=== PATIENT | female | born 1930 | race Caucasian/White ===

== ENCOUNTER 2016-10-09 12:07 | Emergency (ER) | payer MEDICARE, OTHER ==
[2009-01-29 10:49] VITALS: BP 190/92
[~2016-10-09] VITALS: Ht 162.6 cm; Wt 54.5 kg
[~2016-10-09 12:07] MED LIST: ALDACTONE 25MG25 M1 PO; ALDACTONE 25MG25 MG PO; ASPIRIN 81M81 MG/TA2 PO; FOSAMAX 10M10 MG/TAB PO; LEVOTHYROXIN0.088 MG PO; LEVOXYL0.088 MG PO; LINSEED OIL 1 ML1 ML PO; MAGNESIUM100 MG PO; MULTI VITAMINS1 TAB PO; NORMODYNE100 MG PO; NORMODYNE300 MG PO; SIMVASTATIN10 MG PO; TRANDATE 100MG100 MG PO; VITAMIN B-6100 MG PO; VITAMIN B125000 MCG PO; vitamin b6 PO
[2016-10-09 12:11] VITALS: TEMP 97.4
[2016-10-09 12:53] LABS: BASO % 0.6 % (0.0-2.0); EOS # 0.1 (0.0-0.7); EOS % 2.1 % (0-4.0); GRAN # 3.7 (1.4-6.5); GRAN % 70.4 % (42.2-75.2); HEMATOCRIT 40.9 % (37.0-47.0); HEMOGLOBIN 13.8 g/dl (12.5-16.0); LYMPH # 0.9 (1.2-3.4); LYMPH % 17.2 % (20.0-51.0); MEAN CELL VOLUME 97 fl (80.0-100.0); MEAN CORPUSCULAR HEMOGLOBIN 33 pg (27.0-31.0); MEAN CORPUSCULAR HGB CONC 34 g/dl (33.0-37.0); MEAN PLATELET VOLUME 9.6 fl (7.4-10.4); MONO # 0.5 (0.1-0.6); MONO % 9.3 % (1.7-9.3); PLATELET COUNT 210 K/mm3 (130-400); REDCELL DISTRIBUTION WIDTH-CV 11.3 % (11.5-14.5); WHITE BLOOD COUNT 5.3 K/mm3 (4.8-10.8)
[2016-10-09 13:05] LABS: PH 6 (5-8); SQUAMOUS EPITHELIAL None Seen /hpf; URINE APPEARANCE Clear; URINE BACTERIA None Seen /hpf; URINE BILIRUBIN Negative (NEGATIVE); URINE BLOOD Negative (NEGATIVE); URINE COLOR Straw; URINE GLUCOSE Negative (NEGATIVE); URINE KETONE Negative (NEGATIVE); URINE RBC 0-2 /hpf; URINE UROBILINOGEN Negative (NEGATIVE); URINE WBC None Seen /hpf
[2016-10-09] MEDS ORDERED: CALCIUM 600 PLU1 TAB PO (13:05)
[2016-10-09] MEDS ORDERED: FOSAMAX5 MG PO (13:07)
[2016-10-09 13:11] LABS: ADJUSTED CALCIUM 9.8 mg/dL (8.4-10.2); ALANINE AMINOTRANSFERASE 50 U/L (9-52); ALBUMIN 4.2 gm/dL (3.5-5.0); ALKALINE PHOSPHATASE 55 U/L (50-136); ANION GAP 12 mmol/L (7-16); BILIRUBIN,TOTAL 1.8 mg/dL (0.0-1.0); BLOOD UREA NITROGEN 22 mg/dL (7-17); CARBON DIOXIDE 26 mmol/L (22-30); CHLORIDE 98 mmol/L (98-107); CREATININE, serum 0.58 mg/dL (0.52-1.25); GLUCOSE 124 mg/dL (74-106); POTASSIUM 4.5 mmol/L (3.4-5.0); SODIUM 137 mmol/L (137-145)
[2016-10-09 13:15] LABS: C-REACTIVE PROTEIN < 0.5 mg/dL (0.0-0.9)
[2016-10-09 13:18] LABS: ERYTHROCYTE SEDIMENTATION RATE 2 mm/hr (0-30)
[2016-10-09 13:21] LABS: TROPONIN-I < 0.012 ng/mL (0.000-0.034)
[2016-10-09 14:32] VITALS: BP 152/79; PULSE 64
[2016-10-09] MEDS ORDERED: NORVASC2.5 MG PO (14:41)
== END 2016-10-09 14:49 | disposition home or self-care (01) ==
LOC: COL.ER 12:07
PROVIDERS: Emergency Medicine
DX: I10 Essential (primary) hypertension (principal); R42 Dizziness and giddiness; Z86.73 Personal history of transient ischemic attack (TIA), and cerebral infarction without residual deficits; I45.10 Unspecified right bundle-branch block
CPT/HCPCS: J7030

== ENCOUNTER 2016-10-31 13:49 | Emergency (ER) | payer MEDICARE, OTHER ==
[2009-01-29 10:49] VITALS: BP 190/92
[~2016-10-31] VITALS: Ht 165.1 cm; Wt 54.5 kg
[~2016-10-31 13:49] MED LIST changes: +CALCIUM 600 PLU1 TAB PO; +FOSAMAX5 MG PO; +NORVASC2.5 MG PO
[2016-10-31 13:55] VITALS: TEMP 97.8
[2016-10-31 15:19] LABS: BASO % 0.5 % (0.0-2.0); EOS # 0.1 (0.0-0.7); EOS % 2.5 % (0-4.0); GRAN # 2.9 (1.4-6.5); GRAN % 65.6 % (42.2-75.2); HEMATOCRIT 39.3 % (37.0-47.0); HEMOGLOBIN 13.3 g/dl (12.5-16.0); LYMPH # 0.9 (1.2-3.4); LYMPH % 20.5 % (20.0-51.0); MEAN CELL VOLUME 96 fl (80.0-100.0); MEAN CORPUSCULAR HEMOGLOBIN 33 pg (27.0-31.0); MEAN CORPUSCULAR HGB CONC 34 g/dl (33.0-37.0); MEAN PLATELET VOLUME 9.5 fl (7.4-10.4); MONO # 0.5 (0.1-0.6); MONO % 10.4 % (1.7-9.3); PLATELET COUNT 177 K/mm3 (130-400); RED BLOOD COUNT 4.09 M/mm3 (4.10-5.30); REDCELL DISTRIBUTION WIDTH-CV 11.6 % (11.5-14.5); WHITE BLOOD COUNT 4.3 K/mm3 (4.8-10.8)
[2016-10-31 15:36] LABS: ADJUSTED CALCIUM 9.2 mg/dL (8.4-10.2); ALANINE AMINOTRANSFERASE 40 U/L (9-52); ALBUMIN 4.3 gm/dL (3.5-5.0); ALKALINE PHOSPHATASE 43 U/L (50-136); ANION GAP 11 mmol/L (7-16); BILIRUBIN,TOTAL 1.7 mg/dL (0.0-1.0); BLOOD UREA NITROGEN 17 mg/dL (7-17); CALCIUM 9.4 mg/dL (8.4-10.2); CARBON DIOXIDE 26 mmol/L (22-30); CHLORIDE 100 mmol/L (98-107); CREATININE, serum 0.56 mg/dL (0.52-1.25); GLUCOSE 113 mg/dL (74-106); POTASSIUM 4.1 mmol/L (3.4-5.0); SODIUM 136 mmol/L (137-145); TOTAL PROTEIN 6.5 gm/dL (6.4-8.2)
[2016-10-31 15:43] LABS: C-REACTIVE PROTEIN < 0.5 mg/dL (0.0-0.9)
[2016-10-31 16:17] VITALS: BP 139/66; PULSE 66
[2016-10-31 16:54] LABS: ERYTHROCYTE SEDIMENTATION RATE 1 mm/hr (0-30)
== END 2016-10-31 17:15 | disposition home or self-care (01) ==
LOC: COL.ER 13:49
PROVIDERS: Emergency Medicine
DX: R51 Headache (principal); I10 Essential (primary) hypertension; I45.10 Unspecified right bundle-branch block
CPT/HCPCS: J2405; J7030

== ENCOUNTER → 2016-11-05 | Outpatient (CLI) | payer MEDICARE, OTHER | LOC: COL.VAS 12:21 | DX: G45.9 Transient cerebral ischemic attack, unspecified (principal) ==

== ENCOUNTER 2016-11-15 15:45 | Outpatient (RCR) | payer MEDICARE, OTHER | END 2016-11-16 08:33 | disposition home or self-care (01) | LOC: MKS.ESL.PT 15:45 | DX: R53.1 Weakness (principal); R26.81 Unsteadiness on feet | CPT/HCPCS: G8979-GP; G8981-GP; G8982-GP; G8983-GP ==

== ENCOUNTER 2017-12-12 15:52 | Outpatient (RCR) | payer MEDICARE, OTHER ==
[2009-01-29 10:49] VITALS: BP 190/92
[~2017-12-12] VITALS: Ht 162.6 cm; Wt 53.7 kg
[2017-12-12] MEDS ORDERED: ATIVAN 0.50.5 MG/TAB PO (17:20)
[2017-12-12] MEDS ORDERED: NORMODYNE100 MG PO (17:20)
[2017-12-26 09:16] VITALS: BP 135/64; PULSE 54; TEMP 97.6
== END 2018-03-12 | disposition home or self-care (01) ==
LOC: COL.ER
DX: Z20.3 Contact with and (suspected) exposure to rabies (principal); W55.81XA Bitten by other mammals, initial encounter